=== PATIENT | male | born 1945 | race Caucasian/White ===

== ENCOUNTER → 2017-04-25 06:28 | Day surgery (SDC) | payer MEDICARE ==
[2017-04-24 12:05] LABS: HEMATOCRIT 44.4 % (42.0-54.0); HEMOGLOBIN 15.3 g/dL (13.5-17.5); MCH 31.6 pg (26.0-34.0); MCHC 34.5 g/dL (31.0-37.0); MCV 91.7 fL (80.0-100.0); RBC 4.84 10x6/uL (4.20-6.10); RDW 13.3 % (11.5-14.5); WBC 9.1 10x3/uL (4.8-10.8)
[~2017-04-25] VITALS: Ht 182.9 cm; Wt 80.9 kg
[~2017-04-25 06:28] MED LIST: BACTRIM DS TABL1 TAB PO; NORVASC10 MG PO; PRINIVIL20 MG PO; TENORMIN50 MG PO; XARELTO20 MG PO; ZOCOR40 MG PO
[2017-04-25 07:25] VITALS: BP 128/68; Ht 182.9 cm; Wt 80.9 kg
--- NOTE | 2017-04-25 11:18 | NUR ---
1105-RETURNED TO ROOM FROM HOLDING. PATIENT STATES HE IS TIRED OF WAITING AND IS READY TO GO HOME. IV D/C AND HIS RIDE CALLED.
== END | disposition home or self-care (01) ==
LOC: D.OPS 06:28 → D.PAN 09:05 → D.OPS 09:05 → D.PAN 09:45 → D.OPS 09:45
PROVIDERS: Anesthesiology
DX: R97.20 Elevated prostate specific antigen [PSA] (principal); Z01.812 Encounter for preprocedural laboratory examination; Z53.20 Procedure and treatment not carried out because of patient's decision for unspecified reasons

== ENCOUNTER → 2018-10-22 09:29 | Outpatient (CLI) | payer MEDICARE ==
[2017-04-25 07:25] VITALS: BMI 24.2
== END | disposition home or self-care (01) ==
LOC: D.CT 09:29
DX: R26.89 Other abnormalities of gait and mobility (principal)

== ENCOUNTER → 2019-02-09 10:04 | Outpatient (CLI) | payer MEDICARE ==
[2017-04-25 07:25] VITALS: BMI 24.2
== END | disposition home or self-care (01) ==
LOC: D.US 10:04
PROVIDERS: ATTEND Internal Medicine Interventional Cardiology
DX: M79.604 Pain in right leg (principal); M79.605 Pain in left leg; R60.0 Localized edema

== ENCOUNTER → 2019-02-24 12:57 | Outpatient (CLI) | payer MEDICARE ==
[2017-04-25 07:25] VITALS: BMI 24.2
== END | disposition home or self-care (01) ==
LOC: D.CT 12:57
PROVIDERS: ATTEND Family Medicine
DX: I73.9 Peripheral vascular disease, unspecified (principal)

== ENCOUNTER 2019-03-13 08:00 | Outpatient (CLI) | payer MEDICARE ==
[2019-03-20 07:53] VITALS: BMI 23.6
== END 2019-03-13 08:01 | disposition home or self-care (01) ==
LOC: D.OPS 08:00
PROVIDERS: ATTEND Surgery
DX: K40.90 Unilateral inguinal hernia, without obstruction or gangrene, not specified as recurrent (principal); I25.10 Atherosclerotic heart disease of native coronary artery without angina pectoris; I10 Essential (primary) hypertension

== ENCOUNTER → 2019-03-17 06:06 | Outpatient (CLI) | payer MEDICARE ==
[2019-03-13 13:19] LABS: BASOPHILS 0.4 % (0-2); EOSINOPHILS 3.9 % (0-7); HEMATOCRIT 42.3 % (42.0-54.0); HEMOGLOBIN 14.7 g/dL (13.5-17.5); IMMATURE GRANULOCYTES 0.2 % (0-5); LYMPHOCYTES 25.2 % (15-50); MCH 31.3 pg (26.0-34.0); MCHC 34.8 g/dL (31.0-37.0); MCV 90.2 fL (80.0-100.0); MEAN PLATELET VOLUME 9.3 fL (7.4-10.4); MONOCYTES 9.4 % (2-11); NEUTROPHILS 60.9 % (40-80); PLATELET COUNT 205 10x3/uL (130-400); RBC 4.69 10x6/uL (4.20-6.10); RDW 13.3 % (11.5-14.5); WBC 9.9 10x3/uL (4.8-10.8)
[2019-03-13 13:28] LABS: ANION GAP 13.5 mmol/L (8-16); CALCIUM 9.1 mg/dL (8.5-10.1); CARBON DIOXIDE 27.2 mmol/L (21.0-32.0); CREATININE - SERUM 1.3 mg/dL (0.6-1.3); POTASSIUM - SERUM 3.7 mmol/L (3.5-5.1)
[~2019-03-17] VITALS: Ht 182.9 cm; Wt 78.9 kg
[~2019-03-17 06:06] MED LIST changes: +HYDROCODON-ACE1 EA10 PO
[2019-03-17 08:47] VITALS: BP 130/67; Ht 182.9 cm; Wt 78.9 kg
--- NOTE | 2019-03-17 13:55 | NUR ---
1328 DR MILIAN HERE TO SEE PT. SURGERY CANCELLED AND WILL BE RESCHEDULED FOR 03/20/19.
--- NOTE | 2019-03-17 13:57 | NUR ---
1339 IV DC'D. CATHETER INTACT. PRESSURE HELD UNTIL BLEEDING STOPPED. BANDAID APPLIED. PT IS AWARE THAT HE WILL BE CALLED AND GIVEN THE TIME TO ARRIVE ON 03/20/19.
== END | disposition home or self-care (01) ==
LOC: D.OPS 06:06 → D.PAN 08:00 → D.OPS 08:00 → EDSTATUS 08:00
PROVIDERS: ATTEND Surgery
DX: K40.90 Unilateral inguinal hernia, without obstruction or gangrene, not specified as recurrent (principal)

== ENCOUNTER 2019-03-20 07:02 | Day surgery (SDC) | payer MEDICARE ==
[~2019-03-20] VITALS: Ht 182.9 cm; Wt 78.9 kg
[~2019-03-20 07:02] MED LIST changes: -HYDROCODON-ACE1 EA10 PO
[2019-03-20 07:47] LABS: ANION GAP 12.9 mmol/L (8-16); CALCIUM 9.1 mg/dL (8.5-10.1); CARBON DIOXIDE 27.1 mmol/L (21.0-32.0); CREATININE - SERUM 1.3 mg/dL (0.6-1.3)
[2019-03-20 07:48] LABS: APTT 33.2 SECONDS (22.8-39.4); INR 1.21 (0.85-1.17); PROTIME 14.8 SECONDS (11.6-15.0)
[2019-03-20 07:53] VITALS: BP 137/73; Ht 182.9 cm; Wt 78.9 kg
[2019-03-20 09:57] LABS: BASOPHILS 0.4 % (0-2); EOSINOPHILS 3.2 % (0-7); HEMATOCRIT 42.4 % (42.0-54.0); HEMOGLOBIN 14.5 g/dL (13.5-17.5); IMMATURE GRANULOCYTES 0.2 % (0-5); LYMPHOCYTES 32.3 % (15-50); MCHC 34.2 g/dL (31.0-37.0); MCV 90.6 fL (80.0-100.0); MEAN PLATELET VOLUME 10.6 fL (7.4-10.4); MONOCYTES 9.5 % (2-11); NEUTROPHILS 54.4 % (40-80); PLATELET COUNT 258 10x3/uL (130-400); RBC 4.68 10x6/uL (4.20-6.10); RDW 13.3 % (11.5-14.5); WBC 8.5 10x3/uL (4.8-10.8)
[2019-03-20] MEDS ORDERED: HYDROCODON-ACE1 EA10 PO (10:22)
--- NOTE | 2019-03-20 11:10 | NUR ---
REC'D FROM RR. DRESSING CDI TO RIGHT GROIN.
--- NOTE | 2019-03-20 11:31 | NUR ---
KRISH MATT BROUGHT TO PATIENT. EXPLAINED DC CRITERIA.
--- NOTE | 2019-03-20 11:40 | NUR ---
EATING FL DIET. PARTNER AT BEDSIDE.
--- NOTE | 2019-03-20 12:10 | NUR ---
TOLERATED FL TRAY. AMBULATED TO BATHROOM AND VOIDED WITHOUT DIFFICULTY.
--- NOTE | 2019-03-20 12:20 | NUR ---
IV DC'D WITH CATHETER INTACT. WRITTEN AND VERBAL DC INST. GIVEN TO PT. ALONG WITH RX. VERBALIZED UNDERSTANDING.
--- NOTE | 2019-03-20 12:30 | NUR ---
DC'D HOME WITH FAMILY VIA PRIVATE VEHICLE. TAKEN TO VEHICLE VIA WC. STABLE AT TIME OF DC.
--- NOTE | 2019-03-27 10:09 | OP ---
PATIENT NAME: DONI DUENAS MEDICAL RECORD: [id number] :43 LOCATION:[facility] ADMISSION DATE: SURGEON: VINICIUS MILIAN MD DATE OF OPERATION: 03/20/2019 PREOPERATIVE DIAGNOSES: 1. Right inguinal hernia. 2. Coronary artery disease. 3. Hypertension. 4. Hypercholesterolemia. 5. Atrial flutter. 6. Tobacco dependence above. POSTOPERATIVE DIAGNOSES: 1. Right inguinal hernia. 2. Coronary artery disease. 3. Hypertension. 4. Hypercholesterolemia. 5. Atrial flutter. 6. Tobacco dependence above. PROCEDURE: Right inguinal hernia repair with medium PHS mesh. SURGEON: Vinicius Milian MD REPORT OF PROCEDURE: The patient's right groin was prepped and draped in sterile fashion. An oblique incision was made above the inguinal ligament. Electrocautery was used to dissect through the subcutaneous tissues to the external oblique fascia. This fascia was opened up to the external ring using electrocautery. The spermatic cord was elevated and a Elias was placed around it. Through the inguinal floor, there was noted to be a large wide-based fat containing direct hernia defect. This was opened up and the preperitoneal space of Retzius was opened up in all directions. A medium PHS mesh was inserted and sutured down on all sides using interrupted 0 Vicryls. The wound was then irrigated out with normal saline. We inspected one last time and was able to find the patient's ilioinguinal nerve and this was high ligated. The external oblique fascia was then closed with running 2-0 Vicryl, Roseanne's was closed with interrupted 3-0 Vicryl and the skin was closed with running subcutaneous 5-0 Monocryl. A 10 mL of 0.25% Marcaine with epinephrine was infused into the surrounding tissues and the wound was dressed appropriately. COMPLICATIONS: None. CONDITION: Stable. ANESTHESIA: General endotracheal and local. BLOOD LOSS: Minimal. TRANSINT:[id number] Voice Confirmation ID: [id number] DOCUMENT ID: [id number] OPERATIVE REPORT [id number] DONI DUENAS VINICIUS MILIAN MD at 1009 CC: HARIKA ISAAC DO [id number] DICTATION DATE: 03/20/19 1027 BOWLING BALL MARKER: 03/20/19 1106 [facility] 03/20/19 [facility] [address] [facility] [place] [address]
== END 2019-03-20 12:30 | disposition home or self-care (01) ==
LOC: D.OPS 07:02 → D.PAN 10:00 → D.OPS 12:30
PROVIDERS: Anesthesiology; ATTEND Surgery
DX: K40.90 Unilateral inguinal hernia, without obstruction or gangrene, not specified as recurrent (principal); I25.10 Atherosclerotic heart disease of native coronary artery without angina pectoris; I10 Essential (primary) hypertension; E78.00 Pure hypercholesterolemia, unspecified; F17.200 Nicotine dependence, unspecified, uncomplicated; I48.92 Unspecified atrial flutter; Z01.812 Encounter for preprocedural laboratory examination

== ENCOUNTER → 2019-07-24 14:40 | Outpatient (CLI) | payer MEDICARE ==
[2019-03-20 07:53] VITALS: BMI 23.6
[~2019-07-24 14:40] MED LIST changes: +HYDROCODON-ACE1 EA10 PO
--- NOTE | 2019-07-26 09:56 | EC ---
PATIENT:DONI DUENAS DATE OF SERVICE: 07/24/19 SEX: M MEDICAL RECORD: [id number] DATE OF : 43 [facility] AGE OF PATIENT: 73 ADMISSION DATE: 07/24/19 REFERRING PHYSICIAN: INTERPRETING PHYSICIAN: CLAYTON JARAMILLO MD ECHOCARDIOGRAM REPORT ECHO CHARGES 4 ECHO COMPLETE Date: 07/24/19 CLINICAL DIAGNOSIS: H/O EDEMA/HTN/CAD/PVD ECHOCARDIOGRAPHIC MEASUREMENTS (adult normal given) AC root (d.<3.7cm) 3.5 cm LV Septum d (<1.2 cm> 1.2 cm Valve Excursion 2.1 cm LV Septum (systole) 1.7 cm Left Atria (s.<4.0cm> 5.6 cm LVPW d(<1.2cm) 1.2 cm RV (d.<2.3cm) 2.4 cm LVPW (sytole) 1.8 cm LV diastole(<5.6CM) 5.7 cm MV E-F(>70mm/sec) cm LV systole 3.6 cm LVOT Diameter 2.0 cm MV exc.(>10mm) cm Est.ejection fraction (50-75%) % DOPPLER: LVIT cm/sec A cm/sec E 92.0 cm/sec LA cm/sec RVSP 49.0 mmHg LVOT 86.0 cm/sec AOP1/2T m/s Asc. Ao 135 cm/sec RVOT 47.0 cm/sec RA cm/sec PA 72.0 cm/sec AV Gradient Peak 7.2 mmHg AV Mean 3.9 mmHg AV Area 1.5 cm MV Gradient Peak 3.5 mmHg MV Mean 1.5 mmHg MV Area cm COMMENTS: OP - HC Tool Repair Technician: Nila TALBOTOE Preassembler And Inspector: 3 Dr. Daivs TAPE# PACS Pericardial Effusion N DATE OF SERVICE: 07/24/2019 Adequate 2D, color flow imaging, spectral Doppler, and M-Mode Borderline LVH. LV internal dimensions upper limits of normal. LV is globally hypokinetic with reduced EF, estimated EF 30% to 35%. Aortic valve is sclerosed without evidence of stenosis by Doppler interrogation. Left atrium is dilated at 5.6 cm. Mitral valve is thickened. Mitral annular calcification. Moderate MR. Right-sided chambers are grossly normal. Moderate TR. ECHOCARDIOGRAM REPORT [id number] DONI DUENAS TRANSINT:[id number] Voice Confirmation ID: [id number] DOCUMENT ID: [id number] CLAYTON JARAMILLO MD at 0956 CC: [id number] DICTATION DATE: 07/25/19 1127 BUNCH TRIMMER MOLD: 07/25/19 1230 DEP CLI 07/24/19 [place] [id number] [place] [id number]
== END | disposition home or self-care (01) ==
LOC: D.HCCECHO 14:30 → D.HCCARDIO 14:30 → D.HCCECHO 14:40
PROVIDERS: ATTEND Internal Medicine Interventional Cardiology
DX: I25.10 Atherosclerotic heart disease of native coronary artery without angina pectoris (principal)

== ENCOUNTER → 2020-07-11 13:29 | Outpatient (CLI) | payer MEDICARE ==
[2019-03-20 07:53] VITALS: BMI 23.6
== END | disposition home or self-care (01) ==
LOC: D.HCCECHO 11:30
PROVIDERS: ATTEND Internal Medicine Interventional Cardiology
DX: I48.92 Unspecified atrial flutter (principal)

== ENCOUNTER → 2021-01-10 11:22 | Outpatient (CLI) | payer MEDICARE ==
[2019-03-20 07:53] VITALS: BMI 23.6
--- NOTE | 2021-01-11 10:02 | EC ---
PATIENT:DONI DUENAS DATE OF SERVICE: 01/10/21 SEX: M MEDICAL RECORD: [id number] DATE OF : 43 LOCATION:[facility] AGE OF PATIENT: 75 ADMISSION DATE: 01/10/21 REFERRING PHYSICIAN: INTERPRETING PHYSICIAN: CLAYTON JARAMILLO MD ECHOCARDIOGRAM REPORT ECHO CHARGES 4 ECHO COMPLETE Date: 01/10/21 CLINICAL DIAGNOSIS: CAD/HTN/AFIB ASSESS EF MR/TR/AI ECHOCARDIOGRAPHIC MEASUREMENTS (adult normal given) AC root (d.<3.7cm) 3.5 cm LV Septum d (<1.2 cm> 1.6 cm Valve Excursion 1.8 cm LV Septum (systole) 1.7 cm Left Atria (s.<4.0cm> 4.4 cm LVPW d(<1.2cm) 1.5 cm RV (d.<2.3cm) 4.9 cm LVPW (sytole) 1.6 cm LV diastole(<5.6CM) 5.2 cm MV E-F(>70mm/sec) cm LV systole 3.8 cm LVOT Diameter 1.7 cm MV exc.(>10mm) 1.4 cm Est.ejection fraction (50-75%) % DOPPLER: LVIT cm/sec A 66.0 cm/sec E 78.0 cm/sec LA cm/sec RVSP 55 mmHg LVOT 69 cm/sec AOP1/2T m/s Asc. Ao 109 cm/sec RVOT 50 cm/sec RA cm/sec PA 104 cm/sec AV Gradient Peak 4.77 mmHg AV Mean 2.33 mmHg AV Area 1.7 cm MV Gradient Peak 3.18 mmHg MV Mean 1.53 mmHg MV Area cm COMMENTS: Courier Delivery Driver: 2 PINKY WATKINS Soldering Inspector: 3 Dr. Davis TAPE# PACS Pericardial Effusion N DATE OF SERVICE: Adequate 2D, color flow imaging, spectral Doppler, and M-Mode. FINDINGS: LVH present. LV internal dimension is normal. Wall motion is normal. EF is greater than or equal to 55%. Aortic valve is sclerotic. No evidence of stenosis by Doppler interrogation. Mildly AI by color flow imaging. Left atrium dilated 4.4 cm. Mitral valve shows no prolapse. Mild MR. Right side is grossly normal. Moderate TR. TRANSINT:[id number] Voice Confirmation ID: [id number] DOCUMENT ID: [id number] ECHOCARDIOGRAM REPORT [id number] DONI DUENAS,CLAYTON Coronado MD at 1002 CC: [id number] DICTATION DATE: 01/10/21 1529 LUMBER DRIVER: 01/10/21 2311 DEP CLI 01/10/21 [place] [id number] [place] [id number]
== END | disposition home or self-care (01) ==
LOC: D.HCCECHO 11:22
PROVIDERS: ATTEND Internal Medicine Interventional Cardiology
DX: I25.10 Atherosclerotic heart disease of native coronary artery without angina pectoris (principal)